=== PATIENT | female | born 1970 | race Caucasian/White ===

== ENCOUNTER 2017-01-31 02:43 | Emergency (ER) | payer SELFPAY ==
[~2017-01-31] VITALS: Ht 165.1 cm; Wt 77.3 kg
[2017-01-31 02:49] VITALS: Ht 165.1 cm; Wt 77.3 kg
== END 2017-01-31 04:00 | disposition left against medical advice (07) ==
LOC: FTE 02:43
DX: Z53.21 Procedure and treatment not carried out due to patient leaving prior to being seen by health care provider (principal)